=== PATIENT | male | born 1970 | race Caucasian/White ===

== ENCOUNTER 2016-10-23 19:13 | Emergency (ER) | payer SELFPAY ==
[2016-10-23 20:25] LABS: PLATELET COUNT 289 x10^3mcL (130-400); RED CELL DISTRIBUTION WIDTH 12.9 % (11.5-14.5)
[2016-10-23 20:30] LABS: BASOPHIL % 0 % (0-2)
[2016-10-23 20:34] LABS: CALCIUM 8.9 mg/dL (8.5-10.1); CARBON DIOXIDE 21.8 mmol/L (21-32); CREATININE SERUM 1.4 mg/dL (0.7-1.3); POTASSIUM SERUM 3.9 mmol/L (3.5-5.1)
[2016-10-23 20:38] LABS: ALBUMIN 4.1 g/dL (3.4-5.0); BILIRUBIN TOTAL 1.1 mg/dL (0.20-1.00); TOTAL PROTEIN, SERUM 6.7 g/dL (6.4-8.2)
[2016-10-23 23:30] VITALS: BP 126/82
== END 2016-10-23 23:28 | disposition short-term general hospital (02) ==
LOC: ED 19:13
PROVIDERS: Emergency Medicine
DX: S37.062A Major laceration of left kidney, initial encounter (principal); I10 Essential (primary) hypertension; V87.8XXA Person injured in other specified noncollision transport accidents involving motor vehicle (traffic), initial encounter; Y93.I9 Activity, other involving external motion; Y92.488 Other paved roadways as the place of occurrence of the external cause; Y99.8 Other external cause status
CPT/HCPCS: 83880; J1170; J1200; J2405; J7040; Q0092; Q9967